=== PATIENT | female | born 1945 | race Caucasian/White ===

== ENCOUNTER 2024-11-02 11:57 | Day surgery (SDC) | payer MEDICARE, SELFPAY ==
--- NOTE | 2024-11-02 06:48 | W.ANESPRE ---
General Info Date of Service Date Performed: 11/02/24 Height: 5 ft 1 in Weight: 45.359 kg Body Mass Index (BMI): 18.8 Surgical Procedure: Operation Date: 11/02/24 12:55 Proposed Procedure Side Surgeon p Cataract Extraction with IOL Implant Right Eagle Valero MD Meds Allergies and Home Medications Allergies Allergy/AdvReac Type Severity Reaction Status Date / Time nickel Allergy Intermediate Skin Rash Verified 11/01/24 10:41 Home Medication ?Medication ?Instructions ?Recorded atorvastatin 10 mg tablet 10 mg PO DAILY 10/31/24 citalopram 10 mg tablet 10 mg PO DAILY 10/31/24 Current Visit Medications: Current Medications Generic Name Dose Route Start Last Admin Trade Name Freq PRN Reason Stop Dose Admin Acetaminophen 1,000 mg 11/02/24 06:00 Acetaminophen 500 Mg Tab PO 12/02/24 05:59 Q4H PRN PRN Balanced Salt Solution 500 ml 11/02/24 06:00 Balanced Salt Soln.-Plus 500 Ml Bag OP 12/02/24 05:59 DIRECTED VIRGIL Miscellaneous Medication 0 ml 11/02/24 06:00 Prednisolone 1%, Moxifloxacin 0.5%, Bromfenac 0.09% 5.6ml Btl OD 12/02/24 05:59 DIRECTED VIRGIL Miscellaneous Medication 0 ml 11/02/24 06:00 Tropicam./Phenyleph. (1/2.5%) 5 Ml Btl OD 12/02/24 05:59 DIRECTED VIRGIL Tetracaine HCl 0 ml 11/02/24 06:00 Tetracaine 0.5% 4 Ml Btl OD 12/02/24 05:59 DIRECTED VIRGIL PFSH Active Problems Active Problems: Problem Status Onset Code Nuclear age-related cataract, right eye Acute H25.11 Medical History Medical History (Updated 11/01/24 @ 18:37 by Eagle Valero MD) Subdural hemorrhage Nicotine dependence Memory impairment Hypertensive disorder HLD (hyperlipidemia) Diverticular disease Depressive disorder Cerumen impaction Surgical History Surgical History (Updated 11/01/24 @ 10:40 by Roland Mantilla) Hx of colonoscopy H/O craniotomy 11/01/2020-pt .states no deficits Tobacco Smoking/Tobacco Use Status: Current every day Tobacco Type: cigarettes Passive smoking exposure: Yes Alcohol Alcohol Intake: never Substance Use Substance use: Never Substance use type: does not use Vital Signs and Lab Results Vital Signs Most Recent Vital Signs in EMR: Temp Pulse Resp BP Pulse Ox 36.6 C 78 17 131/104 H 100 11/02/24 12:06 11/02/24 12:06 11/02/24 12:06 11/02/24 12:06 11/02/24 12:06 Anesthesia Assessment and Plan Anesthesia History Personal History: No History of Anesthesia Complications Family History: No Family History of Anesthesia Complications Exercise Tolerance Exercise Tolerance: Metabolic Equivalents>4 Cardiac & Pulmonary Exam Cardiac Exam: Normal S1/S2 Heart Sounds Pulmonary Exam: Clear Bilateral Breath Sounds Implantable Cardiac Device Does patient have a Pacemaker or an ICD?: No Airway Exam Known Difficult Airway: No Mallampati Class: 3 Mouth Opening: Normal (> 3cm) Thyromental Distance: Less than 3 cm Neck Range of Motion: Full ROM Neck Circumference: Normal Teeth Condition: Normal Dentition ASA Classification ASA Score: ASA 2 Emergency Case?: No NPO Status NPO Status: NPO Clears >2 hours, Solids >8 hours Anesthesia Plan Resuscitation Status: Full Code Anesthesia Technique: MAC Anesthesia Airway Planned: Natural Airway Monitors Used: Standard Monitors Preoperative Comments:: 79 yo female for cataract removal. would like MKO. drinks no EtOH, will start with a half. Sig PMHx: HTN, depression, memory impairment, s/p SDH with evacuation. smoker.
[2024-11-02 12:06] VITALS: BP 131/104; PULSE 78; RESP 17; TEMP 36.6; O2SAT 100
[2024-11-02] MEDS: Tropicam./Phenyleph. (1/2.5%) 5 ML BTL OD ×3 (12:20→12:32)
[2024-11-02 12:34] VITALS: BMI 18.8
[2024-11-02] MEDS: Povidone-Iodine Ophth 30 ML BTL (13:27)
[2024-11-02] MEDS: Tetracaine 0.5% 4 ML BTL OD (13:29)
[2024-11-02] MEDS: Trypan Blue 0.06% 0.5 ML SYR (13:33)
[2024-11-02] MEDS: Lidocaine 1% Pres-Free 5 ML VIAL (13:36)
[2024-11-02] MEDS: Duovisc Viscoelastic System EACH 1 EACH (13:36)
[2024-11-02] MEDS: Phenylephrine/Lidocaine (15/10) MG/ML 1 ML VIAL (13:36)
[2024-11-02] MEDS: Balanced Salt Soln.-PLUS 500 ML BAG OP (13:37)
[2024-11-02] MEDS: Moxifloxacin-PF 1 MG/ML VIAL (14:03)
[2024-11-02] MEDS: Prednisolone 1%, Moxifloxacin 0.5%, Bromfenac 0.09% 5.6ML BTL OD (14:04)
[2024-11-02 14:06] VITALS: BP 161/90; PULSE 80; RESP 16; TEMP 36; O2SAT 98
--- NOTE | 2024-11-02 14:07 | W.PM.DSUDISC ---
Date of service: 11/02/24 Discharge Plan Disposition Patient Disposition: Home Discharge Details Attending Provider: Eagle Valero Primary Care Provider: HOMA DEAL Home Meds and New Rx's Prescriptions: No Action atorvastatin 10 mg tablet 10 mg PO DAILY Patient Comments: TAKE ONE TABLET BY MOUTH EVERY DAY citalopram 10 mg tablet 10 mg PO DAILY Patient Comments: TAKE ONE TABLET BY MOUTH EVERY DAY Discharge Instructions Stand Alone Forms: [facility] Post-Op Cataract, Waleska Heck ([facility]U) Discharge Orders Discharge Orders: Discharge Order (Routine); Ordered 11/02/24 Ordered By: Eagle Valero DS: Diagnosis Discharge Diagnosis (1) Nuclear age-related cataract, right eye: Status: Resolved (2) 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
--- NOTE | 2024-11-02 14:08 | ROE_ITS ---
Operative Note Operative Note PRE-OP DIAGNOSIS: Dense nuclear cataract, right eye Poorly dilating pupil, right eye Pseudoexfoliation, right eye POST-OP DIAGNOSIS: same PROCEDURE: Cataract extraction using phacoemulsification with intraocular lens implant, right eye Pupillary dilation and iris stabilization using capsular expansion device Insertion of capsule tension ring SURGEON: Eagle Valero ANESTHESIA TYPE: Local By Surgeon and MAC Refer to Anesthesia Record ESTIMATED BLOOD LOSS: 0 PATHOLOGY: none sent COMPLICATIONS: None Patient was transported to: same day Patient's condition: stable Implants: Tien Clareon [id number] Morcher Type 15 capsular tension ring Indications: Progressive decreased vision due to cataract, right eye Poorly dilating pupil, right eye Diffuse zonular laxity secondary to pseudoexfoliation Procedure Description: CATARACT SURGERY OPERATIVE REPORT PREOPERATIVE DIAGNOSIS: Dense nuclear cataract, right eye Poorly dilating pupil, right eye POSTOPERATIVE DIAGNOSIS: Same OPERATION: Cataract extraction using phacoemulsification with posterior chamber intraocular lens implant, right eye. Pupillary dilation and iris stabilization with pupillary expansion device Insertion of capsular tension ring IOL: IOL Nut Process Helper/Model: Tien Clareon [id number] IOL Power: + 21.0 diopters IOL Serial Number: [id number] Optic Diameter: 6.0mm Haptic/Overall Diameter: 13.0mm PHACO INFO: Tien Centurion Vision System with OZil and Active Fluidics Cumulative Dispersed Energy (CDE): 17.17 seconds SURGEON: Eagle Valero MD, DAVID ANESTHESIA: Monitored Anesthesia Care (MAC), with local sub-tenon's anesthetic infiltration COMPLICATIONS: None SPECIMENS: None INDICATIONS FOR PROCEDURE: The patient is an 79-year-old lady with history of diminished visual acuity in her right eye secondary to the development of dense nuclear cataract. She is a poorly dilating pupil secondary to pseudoexfoliation. The option of cataract surgery was offered to the patient and she wished to proceed. See office notes for detailed information. PROCEDURE: The correct surgical eye was identified and marked as the right eye and the pupil was dilated in the preoperative area using mydriatics and cycloplegics. The dilated pupil size was 3.0 mm. Oral sedation was administered in the form of one half of an Imprimis MKO Melt (midazolam 3mg/ketamine 25mg/ondansetron 2mg). The patient was brought to the operating room where cardiopulmonary monitoring was instituted and surgical time-out was performed, confirming the correct operative eye and IOL power. Topical anesthesia was administered and ophthalmic povidone-iodine 5% was instilled into the conjunctival fornices. The matthew-ocular area was prepped with Betadine 10% solution and draped in the usual sterile fashion for intraocular surgery, including an aperture drape. A Tegaderm transparent film dressing was cut in half and used to cover the lashes and lid margins. Care was taken to sequester the lashes and lid margins under the Tegaderm dressing. A lid speculum was placed between the lids of the operative eye and the Tien LuxOR Revalia operating microscope was maneuvered into position. Claude scissors were then used to make a conjunctival buttonhole approximately 6mm posterior to the limbus in the inferonasal quadrant. Blunt dissection was carried out to expose bare sclera, and a blunt-tipped sub-tenon?s anesthesia cannula was introduced and passed posteriorly along the globe where non- preserved plain lidocaine was injected into posterior sub-Tenon?s space. A sideport knife was used to make a paracentesis port. Intraocular phenylephrine/lidocaine was injected into the anterior chamber. The anterior chamber was then filled with viscoelastic. A keratome knife was used to construct a two--plane clear corneal tunnel extending 2.0mm into clear cornea. A 7.0 mm Malyugin ring was inserted into the pupillary space and engaged with the Kuglen hook. The cohesive viscoelastic was then removed using the irrigation/aspiration handpiece. An air bubble was injected into the ante rior chamber and VisionBlue was painted over the anterior lens capsule and left for 30 seconds. Balanced salt solution was then used to irrigate residual VisionBlue. Viscoat was then used to fill the anterior chamber. A flap was raised on the anterior capsule and capsulorhexis forceps were used to complete a continuous curvilinear capsulorhexis of 5.5 mm. The capsule was noted to be quite thin with generalized zonular laxity. Balanced salt solution was then used to perform cortical cleaving hydrodissection and nuclear hydrodelineation until the lens could be freely rotated within the capsular bag. The lens nucleus was then disassembled and removed within the capsular bag and iris plane using phacoemulsification. Residual cortical material was removed using the I/A handpiece. The posterior capsule was carefully polished to remove as much residual lens epithelial cells as safely possible. The capsular bag was then inflated and the anterior chamber deepened with cohesive viscoelastic. A Morcher Type 15 capsular tension ring was inserted into the capsular bag without difficulty. The lens implant described above was inserted into the capsular bag using the Tien Autonome Injector. A Kuglen hook was used to dial the IOL into position. Residual viscoelastic was then removed first from posterior to the IOL, then from the anterior chamber using the I/A handpiece. The lens implant was noted to center nicely within the capsular bag. The incisions were stromally hydrated, and the anterior chamber was reformed using BSS. Then 0.5cc of moxifloxacin 1.0mg/ml were injected into the capsular bag and anterior chamber. The incisions were checked with a Weck spear and found to be secure. Several drops of ophthalmic povidone-iodine 5% were then applied to the eye followed by two drops of combination steroid/NSAID/antibiotic solution. The drapes were removed and a clear plastic protective eye shield was placed over the eye. The patient was then returned to Same Day Surgery in stable condition. Date of Procedure: 11/02/24
--- NOTE | 2024-11-02 14:21 | W.ANESPOSTOP ---
Postoperative Evaluation Date, Time and Location Date Performed: 11/02/24 Time Performed: 14:15 Patient Location: Day Surgery Unit Vital Signs Most Recent Imported Vital Signs: Most Recent Vital Signs Temp Pulse Resp BP Pulse Ox 36 C L 80 16 161/90 H 98 11/02/24 14:06 11/02/24 14:06 11/02/24 14:06 11/02/24 14:06 11/02/24 14:06 Pain Score Most Recent Pain Score: Most Recent Pain Score Pain Level 0 11/02/24 14:06 Assessment Mental Status: Awake (Alert & Oriented to Patient Baseline) Airway and Respiratory Function: Patent airway with normal (patient baseline) respiratory exam Cardiovascular Function: Hemodynamically Stable Hydration Status: Adequately Hydrated Nausea & Vomiting: No Nausea or Vomiting Pain: Pt. Denies Any Pain Peripheral Nerve Block: Patient did not receive a nerve block
[2024-11-02 14:23] VITALS: BP 147/79; PULSE 85; RESP 20; TEMP 36.6; O2SAT 97
== END 2024-11-02 14:50 | disposition home or self-care (01) ==
LOC: SUR 11:58
PROVIDERS: PCP Family Medicine; Visit Provider Ophthalmology
PROC: (CPT 66982; principal; 2024-11-02 12:45)
DX: H25.11 Age-related nuclear cataract, right eye (principal); H26.8 Other specified cataract; I10 Essential (primary) hypertension; F17.210 Nicotine dependence, cigarettes, uncomplicated; H21.561 Pupillary abnormality, right eye
CPT/HCPCS: 66982; 00123; V2632; J2003